=== PATIENT | female | born 1945 | race Caucasian/White ===

== ENCOUNTER 2016-08-31 11:36 | Emergency (ER) | payer MEDICARE, BC ==
--- NOTE | 2016-09-06 08:15 | ER ---
ADMIT: 08/31/2016 RM/LOC: ER [facility] MR#: [id number] [address] [id number] CHIQUITA WORTHY [address] [place] [address] Emergency Room Report SEX: F AGE: 71 : 1945 DATE: 08/31/2016 HISTORY OF PRESENT ILLNESS: The patient is a 71-year-old female, who was at the gas station pumping when she tripped on something and flew hitting her head on an ice chest sustaining a quite a large laceration on her left parietal scalp. She was brought in via ambulance. No loss of consciousness, but lots of blood. Her vitals are within normal limits with a blood pressure 170/69, pulse is 108, respirations 18, temp 98.7, and O2 sats 98%. Dr. Carson was called to inspect the laceration, which was repaired after the CT scan came back negative for any bleed. PAST MEDICAL HISTORY: Fractured back and ankle, high cholesterol, has had partial hysterectomy and appendectomy and a T and A. PHYSICAL EXAMINATION: There is a 20 cm laceration in a horseshoe shape in the left parietal scalp. A ligation had to be done on an artery with 2-0 absorbable and a little bit of Surgicel to the area. Clots were removed by aspiration, and the procedure went without any problems. I did use lidocaine with epi in the area where the bleeding had taken place Dr. Carson helped me with the ligation of the artery, and I went ahead and instead of putting floyd, I did suture with Prolene 3-0, 16 stitches simple interrupted along the area with good approximation. The patient verbalized understanding of instructions. She did very good with the repair. CLINICAL IMPRESSION: Laceration to scalp secondary to a fall. Head injury instructions. Given Rocephin in the ER plus Augmentin for home use and advised to continue her medications. Have sutures checked within a week and removed in 7 to 10 days. Take antibiotics as prescribed. Follow up with Dr. Ybarra. Hydration and may use Motrin or Tylenol. SHAYLA Morataya / Kosta Carson MD / merrilll JOB #: [id number] CC: Kosta Carson MD, Attending Physician UNKNOWN, Family Physician Aury Ybarra MD
== END 2016-08-31 14:30 | disposition home or self-care (01) ==
LOC: ER 11:36
PROC: 0HQ0XZZ Repair Scalp Skin, External Approach (ICD-10-PCS; principal; 2016-08-31)
DX: S01.01XA Laceration without foreign body of scalp, initial encounter (principal); I10 Essential (primary) hypertension; E11.9 Type 2 diabetes mellitus without complications; W18.09XA Striking against other object with subsequent fall, initial encounter; Y92.524 Gas station as the place of occurrence of the external cause

== ENCOUNTER → 2016-11-03 | Outpatient (CLI) | payer MEDICARE, BC | END | disposition home or self-care (01) | DX: Z12.31 Encounter for screening mammogram for malignant neoplasm of breast (principal); M81.0 Age-related osteoporosis without current pathological fracture; M85.852 Other specified disorders of bone density and structure, left thigh; M85.851 Other specified disorders of bone density and structure, right thigh ==